=== PATIENT | male | born 1930 | race Caucasian/White ===

== ENCOUNTER 2017-02-17 11:01 | Emergency (ER) | payer MEDICARE, MEDICAID ==
[~2017-02-17] VITALS: Ht 170.2 cm; Wt 70.5 kg
[2017-02-17 11:04] VITALS: Ht 170.2 cm; Wt 70.5 kg
[2017-02-17] MEDS ORDERED: ONDANSETRON 4 MG INJ IV STA ×2 (14:01→16:21)
[2017-02-17] MEDS ORDERED: SOD CHLORIDE 0.9% 1,000 ML IV STA (14:01)
[2017-02-17] MEDS ORDERED: morphine 4 MG/ML VIAL IV STA ×2 (14:01→16:21)
--- NOTE | 2017-02-17 14:15 | ERD ---
ER Documentation Chief Complaint Date/Time DATE: 02/17/17 TIME: 14:13 Chief Complaint abdominal pain and constipation x 4 days HPI This is an 86-year-old male who uses a voice modulator. The patient describes at least 5 days of symptoms including abdominal bloating and swelling and lack of bowel movement. He describes moderate pain and states that he takes morphine at home. He denies any nausea or vomiting, fevers or chills. No lumbar back pain. He states that he has had a history of cholecystectomy. ROS All systems reviewed and are negative except as per history of present illness. Medications Home Meds Active Scripts Docusate Sodium* (Colace*) 100 Mg Capsule, 100 MG PO TID Y for CONSTIPATION, # 30 CAP Prov:GABRIELA BELLAMY MD 02/17/17 Tamsulosin Hcl* (Flomax*) 0.4 Mg Cap.er.24h, 0.4 MG PO QHS, #7 CAP Prov:GABRIELA BELLAMY MD 02/17/17 Cephalexin* (Keflex*) 500 Mg Capsule, 500 MG PO QID for 7 Days, CAP Prov:GABRIELA BELLAMY MD 02/17/17 Ondansetron (Ondansetron Odt) 4 Mg Tab.rapdis, 4 MG PO Q6H Y for NAUSEA AND/OR VOMITING, #30 TAB Prov:GABRIELA BELLAMY MD 02/17/17 Hydrocodone/Acetaminophen (Charlotte 5-325 Tablet) 1 Each Tablet, 1 TAB PO Q6H Y for PAIN, #12 TAB Prov:GABRIELA BELLAMY MD 02/17/17 Allergies Allergies: Coded Allergies: No Known Allergy (Unverified , 02/17/17) Physical Exam Vitals Vital Signs Date Time Temp Pulse Resp B/P Pulse Ox O2 Delivery O2 Flow Rate FiO2 02/17/17 16:00 98.6 75 18 178/87 98 Room Air 02/17/17 11:04 98.6 104 18 130/79 95 Physical Exam General: Well developed, well nourished, no acute distress Head: Normocephalic, atraumatic. Eyes: Pupils equally reactive, EOM intact ENT: Moist mucous membranes Neck: Supple, no lymphadenopathy Respiratory: Lungs clear bilaterally, no distress Cardiovascular: RRR, no murmurs, rubs, or gallops Abdominal: Soft, mild protuberance with tenderness to left lower quadrant without rebound or guarding, normal bowel sounds, no pulsatile mass : Deferred MSK: No edema, no unilateral swelling, 5/5 strength Neurologic: Alert and oriented, moving all extremities, normal speech, no focal weakness, no cerebellar signs Skin: No rash Psych: Normal mood Result Diagram: 02/17/17 1415 02/17/17 1415 Results 24 hrs Laboratory Tests Test 02/17/17 14:15 02/17/17 16:15 White Blood Count 11.210^3/ul Red Blood Count 4.6510^6/ul Hemoglobin 14.4g/dl Hematocrit 41.9% Mean Corpuscular Volume 90.1fl Mean Corpuscular Hemoglobin 31.0pg Mean Corpuscular Hemoglobin Concent 34.4g/dl Red Cell Distribution Width 12.5% Platelet Count 16107^3/UL Mean Platelet Volume 9.6fl Neutrophils % 80.2% Lymphocytes % 11.8% Monocytes % 7.2% Eosinophils % 0.1% Basophils % 0.3% Nucleated Red Blood Cells % 0.0/100WBC Neutrophils # 9.010^3/ul Lymphocytes # 1.310^3/ul Monocytes # 0.810^3/ul Eosinophils # 0.010^3/ul Basophils # 0.010^3/ul Nucleated Red Blood Cells # 0.010^3/ul Prothrombin Time 13.7Sec Prothrombin Time Ratio 1.1 INR International Normalized Ratio 1.05 Activated Partial Thromboplast Time 29.9Sec Sodium Level 144mmol/L Potassium Level 4.0mmol/L Chloride Level 100mmol/L Carbon Dioxide Level 24mmol/L Anion Gap 24 Blood Urea Nitrogen 20mg/dl Creatinine 1.42mg/dl Glucose Level 131mg/dl Calcium Level 9.6mg/dl Total Bilirubin 1.5mg/dl Direct Bilirubin 0.00mg/dl Indirect Bilirubin 1.5mg/dl Aspartate Amino Transf (AST/SGOT) 25IU/L Alanine Aminotransferase (ALT/SGPT) 26IU/L Alkaline Phosphatase 23IU/L Total Protein 8.9g/dl Albumin 4.4g/dl Globulin 4.50g/dl Albumin/Globulin Ratio 0.97 Lipase 42U/L Urine Color YELLOW Urine Clarity SLIGHTLY CLOUDY Urine pH 5.0 Urine Specific [place] 1.024 Urine Ketones 2+mg/dL Urine Nitrite NEGATIVEmg/dL Urine Bilirubin NEGATIVEmg/dL Urine Urobilinogen NEGATIVEmg/dL Urine Leukocyte Esterase NEGATIVELeu/ul Urine Microscopic RBC 42/HPF Urine Microscopic WBC 2/HPF Urine Mucus FEW/HPF Urine Hemoglobin 2+mg/dL Urine Glucose NEGATIVEmg/dL Urine Total Protein 1+mg/dl Current Medications Medications (Trade) Dose Ordered Sig/Pop Route PRN Reason Start Time Stop Time Status Last Admin Dose Admin Sodium Chloride (NS) 1,000 ml @ 1,000 mls/hr Q1H STAT IV 02/17/17 14:01 02/17/17 15:00 DC 02/17/17 14:35 Morphine Sulfate (morphine) 4 mg ONCE STAT IV 02/17/17 14:01 02/17/17 14:02 DC 02/17/17 14:34 Ondansetron HCl (Zofran Inj) 4 mg ONCE STAT IV 02/17/17 14:01 02/17/17 14:02 DC 02/17/17 14:34 Morphine Sulfate (morphine) 4 mg ONCE STAT IV 02/17/17 16:21 02/17/17 16:22 DC Ondansetron HCl 4 mg 4 mg ONCE STAT IV 02/17/17 16:21 02/17/17 16:22 DC Ceftriaxone Sodium (Rocephin) 50 ml @ 100 mls/hr ONCE ONCE IVPB 02/17/17 16:30 02/17/17 16:59 DC 02/17/17 17:26 Procedures/MDM EKG, MONITORS, & DIAGNOSTIC IMAGING: CT abdomen and pelvis: IMPRESSION: 1. 2 cm exophytic nodule in the upper pole right kidney may represent hyperdense cyst or mass. Multiphase renal protocol CT is suggested for further evaluation. 2. 5 ml partially obstructive calculus in the mid-left ureter. 3. Mild left hydronephrosis. 4. Inflammatory change around the left kidney may indicate pyelonephritis. 5. Small hiatal hernia. 6. Moderate atherosclerotic peripheral vascular disease. 7. 2.3 cm benign-appearing cyst in the lower pole of the right kidney. 8. Previous cholecystectomy. 9. Enlarged prostate gland. Correlation with physical exam and laboratory testing is suggested. 10. Small free fluid in pelvic cul-de-sac of indeterminate etiology, possibly with related to inflammatory change around the left kidney. Findings discussed Dr. Bellamy on 02/17/2017 at 1529 hours. RPTAT: QQ LAB INTERPRETATION: No significant leukocytosis, no evidence of urinary tract infection MEDICAL DECISION MAKING: The patient is a difficult historian given his requirement and dependence on local assistance. However, the patient is 86 years old and presents with abdominal pain and tenderness left lower quadrant. Differential includes volvulus, small bowel obstruction, diverticulitis. No signs or symptoms concerning for acute aortic process or dissection. CT imaging is certainly necessary. Consider also constipation. ER COURSE: The patient did require repeat dose of pain medication but his pain is improved. The patient is a 5 mm mid ureteral stone. Radiologist is concerned for pyelonephritis but the patient does not have a fever, no leukocytosis and urinalysis does not support this. This is possibly just related to inflammatory changes in the setting of ureterolithiasis. The patient however was given a single dose of ceftriaxone given his age. Urine culture has been sent. The patient is well-appearing at this point and symptoms are dramatically improved. He is describing some constipation. Patient states that the right-sided renal mass versus cyst is known to him. I spoke to his primary care physician, Dr. Taylor will follow up with him as an outpatient. I spoke to the on-call urologist Dr. Flower, who agrees with outpatient management at this point. Patient was advised to return for any fevers, worsening pain or intractable pain. I kept the patient and/or family informed of laboratory and diagnostic imaging results throughout the emergency room course. DISPOSITION PLAN: We discussed follow up with the patient's primary care doctor within 24 to 48 hours as needed. We also discussed return to the emergency room for worsening symptoms or worsening condition. Outpatient referral: Urology Discharge Medications: Charlotte, Zofran, Colace, Keflex, Flomax Departure Diagnosis: Primary Impression: Ureterolithiasis Additional Impressions: Renal mass Renal cyst Constipation Constipation type: unspecified constipation type Qualified Code: K59.00 - Constipation, unspecified constipation type Generalized abdominal pain Condition: Stable GABRIELA BELLAMY MD Feb 17, 2017 14:15
[2017-02-17 14:25] LABS: BASOPHILS % 0.3 % (0.0-2.0); EOSINOPHILS % 0.1 % (0.0-7.0); HEMATOCRIT 41.9 % (42.0-52.0); HEMOGLOBIN 14.4 g/dl (14.0-18.0); LYMPHOCYTES # 1.3 10^3/ul (0.8-2.9); LYMPHOCYTES % 11.8 % (15.0-51.0); MEAN CORPUSCULAR HGB CONC 34.4 g/dl (32.0-37.0); MEAN CORPUSCULAR VOLUME 90.1 fl (82.0-101.0); MEAN PLATELET VOLUME 9.6 fl (7.4-10.4); MONOCYTE # 0.8 10^3/ul (0.3-0.9); MONOCYTES % 7.2 % (0.0-11.0); NEUTROPHILS % 80.2 % (39.0-77.0); PLATELET COUNT 196 10^3/UL (140-415); RED BLOOD COUNT 4.65 10^6/ul (4.70-6.10); RED CELL DISTRIBUTION WIDTH 12.5 % (11.5-14.5); WHITE BLOOD COUNT 11.2 10^3/ul (4.8-10.8)
[2017-02-17 14:43] LABS: ALBUMIN 4.4 g/dl (3.3-4.9); ALBUMIN/GLOBULIN RATIO 0.97; BILIRUBIN,INDIRECT 1.5 mg/dl (0-1.1); BILIRUBIN,TOTAL 1.5 mg/dl (0.2-1.3); CALCIUM 9.6 mg/dl (8.4-10.2); CREATININE 1.42 mg/dl (0.61-1.24); TOTAL PROTEIN 8.9 g/dl (6.1-8.1)
[2017-02-17 14:53] LABS: INR 1.05; PROTIME 13.7 Sec (12.2-14.2); PT RATIO 1.1
[2017-02-17 14:54] LABS: PARTIAL THROMBOPLASTIN TIME 29.9 Sec (25.0-35.0)
--- NOTE | 2017-02-17 15:33 | RADRPT ---
PROCEDURE: CT Abdomen and Pelvis without contrast. CLINICAL INDICATION: Abdominal pain. TECHNIQUE: CT scan of the abdomen and pelvis without contrast was performed on a multidetector hig h-resolution CT scanner. Coronal and sagittal reformatted images were obtained from the axial [facility] e images. Images were reviewed on a high-resolution PACS workstation. The total exam CTDI equals 1.6 mGy and the total exam DLP equals 452 mGy-cm. COMPARISON: None. FINDINGS: CT abdomen: There is mild atelectasis in the left lung base. The heart size is normal. No pericardial effusion identified. The liver demonstrates normal size and density. No liver mass identified. The gallbladder surgically absent.. There is no intrahepatic or extrahepatic biliary dilatation. The spleen is normal in size. No focal splenic abnormality identified. There is a small hiatal hernia. Stomach is otherwise unremarkable. The pancreas is atrophic. The adrenal glands appear normal. There is a 1.8 cm intermediate density exophytic nodule in the upper pole of the right kidney which could represent cyst or mass. There is mild left hydronephrosis. There is inflammatory change around the left kidney. There is 2.3 cm low density focus in the lower pole of the right kidney, likely cyst. There is a 5 mm partially obstructing calculus in the mid left ureter, 11 cm below the UPJ. The [place] gland measures 5.4 4.4 x 4.6 cm with estimated volume of 55 ml. The aorta is of normal caliber. Aortic vascular calcifications are present. No adenopathy identified. The bowel and mesentery are unremarkable. The appendix is visualized and appears normal. CT pelvis: The pelvic organs are normal. The pelvic sidewalls and inguinal regions are clear. The sigmoid colon and rectum are remarkable for sigmoid diverticulosis. There is small free fluid the cul-de-sac. The osseous structures are remarkable for moderate degenerative spondylosis of the spine. No osteolytic or osteoblastic lesion is detected. IMPRESSION: 1. 2 cm exophytic nodule in the upper pole right kidney may represent hyperdense cyst or mass. [facility] tipse renal protocol CT is suggested for further evaluation. 2. 5 ml partially obstructive calculus in the mid-left ureter. 3. Mild left hydronephrosis. 4. Inflammatory change around the left kidney may indicate pyelonephritis. 5. Small hiatal hernia. 6. Moderate atherosclerotic peripheral vascular disease. 7. 2.3 cm benign-appearing cyst in the lower pole of the right kidney. 8. Previous cholecystectomy. 9. Enlarged prostate gland. Correlation with physical exam and laboratory testing is suggested. 10. Small free fluid in pelvic cul-de-sac of indeterminate etiology, possibly with related to infla mmatory change around the left kidney. Findings discussed Dr. Bellamy on 02/17/2017 at 1529 hours. RPTAT: QQ .Florin Hernández MD, MD Date Time Electronically viewed and signed by .Florin Hernández MD, MD on 02/17/2017 15:32 .M/
[2017-02-17] MEDS ORDERED: CEFTRIAXONE 1 GM/50 ML (PMX) 50 ML IVPB ONE (16:30)
[2017-02-17 16:55] LABS: ADD UMIC YES; UR ASCORBIC ACID NEGATIVE (NEGATIVE); UR BILIRUBIN (Dip) NEGATIVE (NEGATIVE); UR BLOOD (Dip) 2+ mg/dL (NEGATIVE); UR CLARITY SLIGHTLY CLOUDY (CLEAR); UR COLOR YELLOW (YELLOW); UR GLUCOSE (Dip) NEGATIVE (NEGATIVE); UR KETONES (Dip) 2+ mg/dL (NEGATIVE); UR LEUKOCYTE ESTERASE (Dip) NEGATIVE Leu/ul (NEGATIVE); UR MUCUS FEW /HPF (NONE SEEN); UR NITRITE (Dip) NEGATIVE (NEGATIVE); UR RBC 42 /HPF (0-5); UR SPECIFIC GRAVITY (Dip) 1.024 (1.003-1.030); UR TOTAL PROTEIN (Dip) 1+ mg/dl (NEGATIVE); UR UROBILINOGEN (Dip) NEGATIVE (NEGATIVE)
[2017-02-17] MEDS ORDERED: TAMS-14 PO (17:32)
[2017-02-17] MEDS ORDERED: CEPH-443 PO (17:32)
[2017-02-17] MEDS ORDERED: HYDR-906 PO (17:32)
[2017-02-17] MEDS ORDERED: ONDA4TAB14 PO (17:32)
[2017-02-17] MEDS ORDERED: DOCU-144 PO (17:42)
[2017-02-17 17:51] VITALS: BP 169/81; PULSE 82; RESP 16; TEMP 98.9
== END 2017-02-17 18:18 | disposition home or self-care (01) ==
LOC: E/R 11:01
DX: N20.1 Calculus of ureter (principal); N28.89 Other specified disorders of kidney and ureter; N28.1 Cyst of kidney, acquired; K59.00 Constipation, unspecified; R10.84 Generalized abdominal pain
CPT/HCPCS: 74176; 80053; 81001; 83690; 85025; 85610; 85730; 87086; J0696; J2270; J2405; J7030; 36415; 96374; 96375